=== PATIENT | male | born 1985 | race Caucasian/White ===

== ENCOUNTER 2024-10-26 12:07 | Emergency (ER) | payer OTHER ==
[2024-10-26] MEDS ORDERED: Lidocaine 1% 30 ML SDV INJECT ONE (12:12)
[2024-10-26] MEDS: Diphtheria,Pertussis(Acell),Tetanus Vaccine 0.5 ML Syringe IM ONE (12:43)
== END 2024-10-26 12:56 | disposition home or self-care (01) ==
LOC: VM.ED 12:07
DX: S61.012A Laceration without foreign body of left thumb without damage to nail, initial encounter (principal); Z23 Encounter for immunization; W26.8XXA Contact with other sharp object(s), not elsewhere classified, initial encounter
CPT/HCPCS: 12002; 90471; 90715; 99282-25